=== PATIENT | female | born 1975 | race Caucasian/White ===

== ENCOUNTER 2019-06-27 12:25 | Emergency (ER) | payer OTHER ==
[~2019-06-27] VITALS: Ht 165.1 cm; Wt 74.4 kg
[2019-06-27] MEDS ORDERED: Augmentin 875-1 EACH PO (13:06)
== END 2019-06-27 13:36 | disposition home or self-care (01) ==
LOC: ER 12:25
DX: S51.052A Open bite, left elbow, initial encounter (principal); S51.851A Open bite of right forearm, initial encounter; Z88.2 Allergy status to sulfonamides; Z88.5 Allergy status to narcotic agent; W54.0XXA Bitten by dog, initial encounter
CPT/HCPCS: 90471; 90714; 99283-25

== ENCOUNTER → 2019-12-01 | Outpatient (CLI) | payer OTHER ==
[~2019-12-01] MED LIST: Augmentin 875-1 EACH PO
[2019-12-05 13:07] LABS: HPV 16 Negative (Negative); HPV 18 Negative (Negative); HPV OTHER HR TYPES Negative (Negative)
== END | disposition home or self-care (01) ==
LOC: LAB SHORT 16:20 → LAB 16:20
PROVIDERS: Family Medicine
DX: Z01.419 Encounter for gynecological examination (general) (routine) without abnormal findings (principal)
CPT/HCPCS: 87624; G0145

== ENCOUNTER 2021-05-31 11:07 | Emergency (ER) | payer OTHER ==
[~2021-05-31] VITALS: Ht 165.1 cm; Wt 65.8 kg
[2021-05-31] MEDS ORDERED: Amoxicillin500 MG PO (11:24)
== END 2021-05-31 12:15 | disposition home or self-care (01) ==
LOC: ER 11:07
DX: S93.601A Unspecified sprain of right foot, initial encounter (principal); Z88.2 Allergy status to sulfonamides; X50.1XXA Overexertion from prolonged static or awkward postures, initial encounter
CPT/HCPCS: 73630; 99283-25